=== PATIENT | male | born 1985 | race Caucasian/White ===

== ENCOUNTER 2023-04-03 10:00 | Outpatient (CLI) | payer BC, SELFPAY | END 2023-04-03 10:01 | disposition home or self-care (01) | PROVIDERS: PCP Physician Assistant Medical; Visit Provider Physician Assistant Medical | DX: Z00.00 Encounter for general adult medical examination without abnormal findings (principal); Z13.6 Encounter for screening for cardiovascular disorders; Z13.29 Encounter for screening for other suspected endocrine disorder | CPT/HCPCS: 80053; 80061; 84443 ==

== ENCOUNTER 2024-12-22 11:32 | Emergency (ER) | payer BC, SELFPAY ==
[2024-12-22] VITALS (17 sets, daily range): BP systolic 115–163; BP diastolic 68–96; PULSE 51–63; RESP 8–20; TEMP 36.7; O2SAT 98–100; BMI 24.0
--- NOTE | 2024-12-22 11:54 | ED.GENADULT ---
HPI - General Adult General Chief complaint: Dizziness/Vertigo Stated complaint: Lightheaded, dizzy Time Seen by Provider: 12/22/24 11:54 History of Present Illness HPI narrative: Pt had blood clot found on left calf on . States was not characterized as a DVT, so surgeon went ahead with foot fusion surgery on 12/17. Has been on xarelto daily. Has been feeling OK since surgery until today, today pt has had 2 spells of getting pale/ lightheadedness 39-year-old man presenting to the emergency department with spouse with concern of 2 episodes of lightheadedness or near-syncope. Not dizzy. Works out pretty heavily and arrival here is noted to near bradycardic on EKG noting bradycardic heart rate. This would not be atypical. Ahead of foot fusion; Lisfranc injury on 12/17 had been found to have an approximately 3 cm clot in superficial vein just below the popliteal fossa in the same side left leg. No longer with discomfort in this area. Decision was made to go ahead with surgery and he has been anticoagulated regularly with rivaroxaban since that time. He has decreased oxycodone now to 1 tab per dosing now closer to every 6 hours and about a day and half ago discontinued the hydroxyzine. He was probably near the end of this dosing window this morning. Was in a meeting alternating sips of water and coffee when had 2 episodes of this lightheadedness and visible pallor within 10 minutes. He has noted himself to sweat heavily with the oxycodone but otherwise has not experienced difficulty with med. He did have breakfast this morning as well. No sense of irregular heartbeats/palpitations. Currently feeling well. Recommended to be evaluated per discharge instructions with concern of clot propagation. Related Data Home Medications ?Medication ?Instructions ?Recorded ?Confirmed multivitamin (Daily Multi-Vitamin 1 tab PO QAM 04/03/23 12/24/24 tablet) acetaminophen 500 mg tablet 500 - 1,000 mg PO 3XD PRN pain 12/22/24 12/24/24 oxycodone 5 mg tablet 5 mg PO Q4H PRN pain 12/22/24 12/22/24 rivaroxaban 20 mg tablet (Xarelto) 20 mg PO DAILY 12/22/24 12/24/24 Allergies Allergy/AdvReac Type Severity Reaction Status Date / Time seasonal pollens Allergy Mild sneezing, Uncoded 12/24/24 08:48 congestion Review of Systems Status of ROS: Reports: 6 or more systems reviewed and unremarkable except as noted in History and below [facility] Medical History (Updated 12/24/24 @ 09:21 by Indio Trejo MD) Lisfranc fracture Blood clot in leg Surgical History History of wisdom tooth extraction ?K08.409 - Partial loss of teeth, unspecified cause, unspecified class (ICD-10) Family History (Updated 12/11/24 @ 11:49 by Fátima Arora CNP) Father High cholesterol Social History What is your current living situation?: I presently have a place to live In the past 12 months, utilities in danger of being shut off: no In past 12 months, lack of transportation kept you from medical appts, meetings, work, or getting things needed for daily living: no In the past 12 mos, have been you worried that your food would run out before you had money to buy more?: never true In the past 12 mos, the food you bought just didn't last and you didn't have money to buy more?: never true Smoking Status: Never smoker How often do you have a drink containing alcohol: 2-3 times a week How many standard drinks containing alcohol do you have on a typical day: 1 or 2 AUDIT-C Alcohol total score: 3 Non-prescribed substance use: denies use How often does anyone, including family, friends and others, physically hurt you: never How often does anyone, including family, friends and others, insult or talk down to you: never How often does anyone, including family, friends and others, threaten you with harm: never How often does anyone, including family, friends and others, scream or curse at you: never Exam Narrative: Exam Narrative: Pleasant. NAD. Well built. Breathing easily. There is no supraclavicular crepitus. Lungs are clear. Cranial nerves 2-12 intact. He does have intact a wrapping over casting over the left lower leg ankle to foot. There is heavy bruising in his toes on this foot. Does appear generally well perfused. No reproduction to pain to palpation in the posterior left leg. No unusual swelling. Heart in slower but regular rate and rhythm without murmur rub or gallop. Abdomen is flat, soft. Const: Vital Signs, click to edit/add: Vital Signs - 24 hr 12/22/24 11:37 12/22/24 11:46 12/22/24 11:48 Temperature 98.0 F Pulse Rate 56 L Pulse Rate [Pulse Oximeter] 61 Pulse Rate [orthos tatic sitting Puls e Oximeter] Pulse Rate [orthos tatic standing Pul se Oximeter] Respiratory Rate 20 9 L 9 L Blood Pressure 140/83 H Blood Pressure [Ri ght Upper Arm] 163/95 H Blood Pressure [or thostatic sitting Left Arm] Blood Pressure [or thostatic standing Left Arm] Pulse Oximetry 100 [facility] 12/22/24 12:00 12/22/24 12:02 12/22/24 12:15 Temperature Pulse Rate 51 L 57 L 59 L Pulse Rate [Pulse Oximeter] Pulse Rate [orthos tatic sitting Puls e Oximeter] Pulse Rate [orthos tatic standing Pul se Oximeter] Respiratory Rate 9 L 8 L 9 L Blood Pressure 129/72 Blood Pressure [Ri ght Upper Arm] Blood Pressure [or thostatic sitting Left Arm] Blood Pressure [or thostatic standing Left Arm] Pulse Oximetry 100 99 99 Oxygen Delivery [facility] 12/22/24 12:25 12/22/24 12:30 12/22/24 12:31 Temperature Pulse Rate 58 L 63 Pulse Rate [Pulse Oximeter] Pulse Rate [orthos tatic sitting Puls e Oximeter] Pulse Rate [orthos tatic standing Pul se Oximeter] Respiratory Rate 20 9 L Blood Pressure 123/96 H 127/74 Blood Pressure [Ri ght Upper Arm] Blood Pressure [or thostatic sitting Left Arm] Blood Pressure [or thostatic standing Left Arm] Pulse Oximetry 99 98 [facility] 12/22/24 12:33 12/22/24 12:45 12/22/24 13:00 Temperature Pulse Rate 59 L 57 L Pulse Rate [Pulse Oximeter] Pulse Rate [orthos tatic sitting Puls e Oximeter] 58 L Pulse Rate [orthos tatic standing Pul se Oximeter] 62 Respiratory Rate 10 L 13 Blood Pressure Blood Pressure [Ri ght Upper Arm] Blood Pressure [or thostatic sitting Left Arm] 123/96 H Blood Pressure [or thostatic standing Left Arm] 127/74 Pulse Oximetry 98 99 Oxygen Delivery Me thod 12/22/24 13:03 12/22/24 13:15 12/22/24 13:30 Temperature Pulse Rate 60 58 L 55 L Pulse Rate [Pulse Oximeter] Pulse Rate [orthos tatic sitting Puls e Oximeter] Pulse Rate [orthos tatic standing Pul se Oximeter] Respiratory Rate 14 12 12 Blood Pressure 115/68 Blood Pressure [Ri ght Upper Arm] Blood Pressure [or thostatic sitting Left Arm] Blood Pressure [or thostatic standing Left Arm] Pulse Oximetry 100 100 100 Oxygen Delivery Me thod Room Air 12/22/24 13:32 12/22/24 13:45 Temperature Pulse Rate 60 58 L Pulse Rate [Pulse Oximeter] Pulse Rate [orthos tatic sitting Puls e Oximeter] Pulse Rate [orthos tatic standing Pul se Oximeter] Respiratory Rate 10 L 10 L Blood Pressure 126/70 Blood Pressure [Ri ght Upper Arm] Blood Pressure [or thostatic sitting Left Arm] Blood Pressure [or thostatic standing Left Arm] Pulse Oximetry 100 98 Oxygen Delivery Me thod Documenting provider has reviewed patient's vital signs: yes Course Vital Signs Vital signs: Initial Vital Signs Temperature 98.0 F 12/22/24 11:37 Temperature Source Temporal Artery Scan 12/22/24 11:37 Pulse Rate 61 12/22/24 11:37 Respiratory Rate 20 12/22/24 11:37 Blood Pressure 163/95 H 12/22/24 11:37 Blood Pressure Mean 117 H 12/22/24 11:37 Blood Pressure Position Sitting 12/22/24 11:37 Pulse Oximetry 100 12/22/24 11:37 Oxygen Delivery Method Room Air 12/22/24 11:37 Vital Signs Temperature 98.0 F 12/22/24 11:37 Pulse Rate 61 12/22/24 11:37 Respiratory Rate 20 12/22/24 11:37 Blood Pressure 163/95 H 12/22/24 11:37 Pulse Oximetry 100 12/22/24 11:37 Oxygen Delivery Method Room Air 12/22/24 11:37 Temperature 98.0 F 12/22/24 11:37 Pulse Rate 58 L 12/22/24 13:45 Respiratory Rate 10 L 12/22/24 13:45 Blood Pressure 126/70 12/22/24 13:32 Pulse Oximetry 98 12/22/24 13:45 Oxygen Delivery Method Room Air 12/22/24 13:03 Medical Decision Making MDM Narrative Medical decision making narrative: Suspect more of a vasovagal type event possibly medication precipitated. Is already anticoagulated appropriately. No respiratory or chest symptoms otherwise to suggest pulmonary embolus. Does not have persistent symptoms to suggest more significant occlusive event. May have been some sort of arrhythmia. I would monitor on manager monitoring and check labs which were not done actually preop but apparently had been done in the year. Orthostatics. Look for any evidence of cardiac injury. No noted history of seizures. Initial EKG independently reviewed by me does show sinus bradycardia rate of 54. Do not appreciate any irregularity here or indication of ischemia. Unremarkable orthostatics Labs are reassuring. Creatinine of 1.1 -- wonder if might be just a little bit elevated for age? Supplements? Stable vitals over time in the ER and no events on monitor. Given some food. Appears safe for discharge. See patient discharge plan for further discussion I am relieved we have not found anything at this point. Like you I wonder if this might have been related to food/liquid intake, or lack there of, and maybe some lingering medication effect. Have not seen any evidence of an arrhythmia. Otherwise your vitals and labs look quite good. Would return for repeated episodes, certainly full syncope, chest pain or shortness of breath. Medical Records Medical records reviewed: Yes I reviewed the patient's medical records Lab Data Lab results reviewed: Yes I reviewed the patient's lab results Labs: Lab Results 12/22/24 12/22/24 Range/Units 12:21 12:45 WBC 7.24 (4.50-11.00) K/uL RBC 4.99 (4.30-5.90) m/uL Hgb 15.6 (13.5-17.5) gm/dL Hct 43.2 (37.0-53.0) % MCV 87 (80-100) fL MCH 31 (26-34) pg MCHC 36 (32-36) gm/dL RDW Coeff of Erich 11.9 (11.5-15.5) % Plt Count 210 (140-440) K/uL Neut % (Auto) 61.1 (42.0-72.0) % Lymph % (Auto) 27.2 (20-44) % Will % (Auto) 8.0 (0.0-11.0) % Eos % (Auto) 2.9 (0.0-7.0) % Baso % (Auto) 0.7 (0.0-3.0) % Neut # (Auto) 4.42 (1.7-7.0) K/uL Lymph # (Auto) 1.97 (0.90-2.90) K/uL Will # (Auto) 0.60 (0.00-0.90) K/UL Eos # (Auto) 0.21 (0.00-0.50) K/uL Baso # (Auto) 0.05 (0.00-0.30) K/uL Abs Immat Gran (auto) 0.01 (0.00-0.30) K/uL Imm/Tot Granulo (auto) 0.1 % Sodium 136 (135-149) mmol/L Potassium 4.1 (3.6-5.1) mmol/L Chloride 98 (96-114) mmol/L Carbon Dioxide 30 (20-32) mmol/L Anion Gap 8 (7-15) mEq/L BUN 17 (5-24) mg/dL Creatinine 1.1 (0.5-1.5) mg/dL Estimated Creat Clear 101.89 Estimated GFR 88 ml/min Glucose 107 (60-115) mg/dL Calcium 9.4 (8.4-10.6) mg/dL Troponin I < 0.01 (0.01-0.04) ng/mL NT-Pro-B Natriuret Pep 38 (See Note) pg/mL POC Troponin I 0.00 L (0.01-0.04) ng/ml ECG Data Attestation: I personally reviewed and interpreted this ECG as follows: (Sinus bradycardia at 54. Without ischemic changes or indication of arrhythmia otherwise) Discharge Plan Discharge Clinical Impression: Lightheadedness Patient Disposition: Home w/ Parent or Adult Condition: Stable Additional Instructions: I am relieved we have not found anything at this point. Like you I wonder if this might have been related to food/liquid intake, or lack there of, and maybe some lingering medication effect. Have not seen any evidence of an arrhythmia. Otherwise your vitals and labs look quite good. Would return for repeated episodes, certainly full syncope, chest pain or shortness of breath. Prescriptions: No Action multivitamin [Daily Multi-Vitamin] Tablet 1 tab PO QAM acetaminophen 500 mg tablet 500 - 1,000 mg PO 3XD PRN (Reason: pain) oxycodone 5 mg tablet 5 mg PO Q4H PRN (Reason: pain) Xarelto 20 mg tablet 20 mg PO DAILY Follow Up/Referrals: Provider,Not a Local [Primary Care Provider, Family Practice] Stand Alone Forms: [facility] Info Instructions
[2024-12-22 12:56] LABS: Hematocrit 43.2 % (37.0-53.0); Hemoglobin* 15.6 gm/dL (13.5-17.5); Immature Granulocytes Abs Auto 0.01 K/uL (0.00-0.30); Immature Granulocytes Pct Auto 0.1 %; Lymphocytes Absolute Auto 1.97 K/uL (0.90-2.90); Mean Corpuscular HGB Conc 36 gm/dL (32-36); Mean Corpuscular Hemoglobin 31 pg (26-34); Mean Corpuscular Volume 87 fL (80-100); RDW Coefficient of Variation % 11.9 % (11.5-15.5); Red Blood Count 4.99 m/uL (4.30-5.90); White Blood Count* 7.24 K/uL (4.50-11.00)
[2024-12-22 13:01] LABS: Troponin, Point-of-Care* 0.00 ng/ml (0.01-0.04)
[2024-12-22 13:02] LABS: Slide Review Reflex No
[2024-12-22 13:08] LABS: Chloride* 98 mmol/L (96-114)
[2024-12-22 13:09] LABS: Potassium* 4.1 mmol/L (3.6-5.1); Sodium* 136 mmol/L (135-149)
[2024-12-22 13:12] LABS: Anion Gap 8 mEq/L (7-15); Blood Urea Nitrogen* 17 mg/dL (5-24); Calcium* 9.4 mg/dL (8.4-10.6); Carbon Dioxide* 30 mmol/L (20-32); Creatinine* 1.1 mg/dL (0.5-1.5); Est. Creatinine Clearance* 101.89; Estimated Glomerular Filt Rate 88 ml/min; Glucose* 107 mg/dL (60-115)
[2024-12-22 13:31] LABS: NT Pro B Type NatriureticPept* 38 pg/mL (See Note)
== END 2024-12-22 14:12 | disposition home or self-care (01) ==
PROVIDERS: Emergency Provider Family Medicine
DX: R42 Dizziness and giddiness (principal)
CPT/HCPCS: 36415; 80048; 83880; 84484; 85025; 93005; 99284

== ENCOUNTER 2025-04-12 08:11 | Outpatient (CLI) | payer BC, SELFPAY ==
--- NOTE | 2025-04-12 08:15 | CRLHL7_ITS ---
For Patients: As a result of the Century Cures Act, medical imaging exams and procedure reports are released immediately into your electronic medical record. You may view this report before your referring provider. If you have questions, please contact your health care provider. INDICATION: Follow-up clot COMPARISON: 12/16/2024 TECHNIQUE: A compression venous ultrasound exam was performed of the left lower extremity using fuentes-scale imaging, color Doppler and spectral Doppler analysis. FINDINGS: Sonographic imaging of the left lower extremity demonstrates normal compressibility and color Doppler venous blood flow within the common femoral vein, deep femoral vein, and the proximal greater saphenous vein. Within the thigh, the femoral vein is patent and compressible. At a lower level, the popliteal and posterior tibial veins also show normal compressibility and color Doppler venous blood flow. Limited imaging of the contralateral groin demonstrates a normal spectral waveform and color Doppler venous blood flow within the right common femoral vein. IMPRESSION: No evidence of deep vein thrombosis within the left lower extremity. Resolution of the previously noted clot within the left gastrocnemius vein. Dictated by Doug Vu MD @ 04/13/2025 2:29:48 PM (Electronically Signed)
== END 2025-04-12 08:12 | disposition home or self-care (01) ==
LOC: US 08:11
PROVIDERS: PCP Family Medicine; Visit Provider Family Medicine
DX: I82.409 Acute embolism and thrombosis of unspecified deep veins of unspecified lower extremity (principal); Z86.718 Personal history of other venous thrombosis and embolism
CPT/HCPCS: 93971